=== PATIENT | male | born 1945 | race American Indian/Alaskan Native ===

== ENCOUNTER 2021-04-14 15:03 | Emergency (ER) | payer OTHER ==
[~2021-04-14] VITALS: Ht 193 cm; Wt 113.4 kg
[2021-04-14] MEDS ORDERED: AMLODIPINE BESY10 MG PO (16:23)
[2021-04-14] MEDS ORDERED: IRBESARTAN-HCT1 EAC1 PO (16:23)
[2021-04-14] MEDS ORDERED: JENTADUETO XR1 EAC1 PO (16:24)
[2021-04-14] MEDS ORDERED: JARDIANCE10 MG PO (16:24)
[2021-04-14] MEDS ORDERED: TAMSULOSIN HCL0.4 MG PO (16:24)
[2021-04-14] MEDS ORDERED: ATORVASTATIN CA40 MG PO (16:24)
[2021-04-14] MEDS ORDERED: FINASTERIDE5 MG PO (16:25)
[2021-04-14] MEDS ORDERED: METOPROLOL SUC100 MG PO (16:25)
[2021-04-14] MEDS ORDERED: IBU800 MG PO (20:19)
== END 2021-04-14 20:27 | disposition home or self-care (01) ==
LOC: ER 15:03
DX: M25.551 Pain in right hip (principal); Z96.653 Presence of artificial knee joint, bilateral

== ENCOUNTER 2022-05-01 09:15 | Emergency (ER) | payer OTHER ==
[~2022-05-01] VITALS: Ht 188 cm; Wt 113.4 kg
[~2022-05-01 09:15] MED LIST: AMLODIPINE BESY10 MG PO; ATORVASTATIN CA40 MG PO; FINASTERIDE5 MG PO; IBU800 MG PO; IRBESARTAN-HCT1 EAC1 PO; JARDIANCE10 MG PO; JENTADUETO XR1 EAC1 PO; METOPROLOL SUC100 MG PO; TAMSULOSIN HCL0.4 MG PO
== END 2022-05-01 13:13 | disposition home or self-care (01) ==
LOC: ER 09:15
DX: S39.012A Strain of muscle, fascia and tendon of lower back, initial encounter (principal); S76.911A Strain of unspecified muscles, fascia and tendons at thigh level, right thigh, initial encounter; W19.XXXA Unspecified fall, initial encounter; Y93.9 Activity, unspecified; Y92.9 Unspecified place or not applicable; Y99.9 Unspecified external cause status; E11.9 Type 2 diabetes mellitus without complications; Z79.84 Long term (current) use of oral hypoglycemic drugs; I10 Essential (primary) hypertension

== ENCOUNTER 2024-08-16 08:00 | Inpatient (IN) | payer OTHER ==
[~2024-08-16] VITALS: Ht 175.3 cm; Wt 113.4 kg
[2024-08-16 09:20] LABS: HEMATOCRIT 46.9 % (39.0-48.0); HEMOGLOBIN 16.5 g/dL (13-16.00); MEAN CELL VOLUME 86.9 fL (80.0-100.00); MEAN CORPUSCULAR HEMOGLOBIN 30.6 pg (27.00-32.0); MEAN CORPUSCULAR HGB CONC 35.2 g/dl (32.0-36.0); PLATELET COUNT 272 K/uL (150-450)
[2024-08-16 09:25] LABS: URINE APPEARANCE Clear; URINE BILIRRUBIN Negative (NEGATIVE); URINE BLOOD Negative; URINE COLOR Yellow; URINE KETONE Negative (NEGATIVE); URINE LEUKOCYTE Negative; URINE NITRATE Negative; URINE PROTEIN Negative (NEGATIVE); URINE UROBILINOGEN 0.2 E.U./dl
[2024-08-16 09:26] VITALS: BP 135/87
[2024-08-16 09:29] LABS: URINE BACTERIA 129.7 uL (0.0-1933); URINE EPITHELIAL CELLS 4.2 uL (0.0-38.8); URINE RBC 20.6 uL (0.0-20.8); URINE WBC 4.1 uL (0.0-23.2)
[2024-08-16 09:44] LABS: PARTIAL THROMBOPLASTIN TIME 28.9 SECONDS (22.0-34.0); PROTHROMBIN TIME 10.9 SECONDS (9.0-11.5)
[2024-08-16 09:57] LABS: URINE GLUCOSE >=1000 MG/DL (NEGATIVE)
[2024-08-16 10:01] LABS: ALBUMIN 3.9 gm/dL (3.4-5.0); BILIRUBIN TOTAL 0.78 mg/dL (0.3-1.2); CALCIUM 9.2 mg/dL (8.5-10.1); CREATININE SERUM 1.14 mg/dL (0.70-1.30); GFR 62.12; GLOBULINA 3.2 G/DL (2.4-3.5); POTASSIUM 4.15 mEq/L (3.5-5.1); TOTAL PROTEIN 7.1 gm/dL (6.4-8.2)
[2024-08-16 10:13] LABS: CHOL HDL RATIO 2.8 (0-5.0)
[2024-08-20] MEDS ORDERED: CEFAZOLIN SODIUM 1,000 MG VIAL ONE (12:31)
[2024-08-20] MEDS ORDERED: ENALAPRILAT DIHYDRATE 1.25 MG/ML VIAL IV PRN (15:15)
[2024-08-20] MEDS ORDERED: DEXTROSE 50 % IN WATER 0.5 G/ML DISP.SYRIN IV PRN (15:15)
[2024-08-20] MEDS ORDERED: INSULIN LISPRO 1,000 UNIT/10 ML UNITS SUBCUTANEO PRN (15:15)
[2024-08-20] MEDS ORDERED: TRANEXAMIC ACID 100MG/1ML (1000MG) AMPUL IV ONE (15:25)
[2024-08-20] MEDS ORDERED: VANCOMYCIN HCL 1,000 MG VIAL ONE (15:34)
[2024-08-20] MEDS ORDERED: hydrALAZINE HCL 20 MG VIAL ONE (16:57)
[2024-08-20] MEDS ORDERED: MORPHINE SULFATE 4 MG/ML VIAL IV ONE ×2 (18:20→21:40)
[2024-08-20 19:36] LABS: HEMATOCRIT 49.6 % (39.0-48.0); HEMOGLOBIN 16.9 g/dL (13-16.00); MEAN CELL VOLUME 88.9 fL (80.0-100.00); MEAN CORPUSCULAR HEMOGLOBIN 30.2 pg (27.00-32.0); PLATELET COUNT 269 K/uL (150-450); RED BLOOD COUNT 5.58 M/uL (4.00-6.00)
[2024-08-20 20:10] LABS: CREATININE SERUM 0.9 mg/dL (0.70-1.30); GFR 81.61; POTASSIUM 4.56 mEq/L (3.5-5.1)
[2024-08-20] MEDS ORDERED: TAMSULOSIN HCL 0.4 MG CAP PO SCH (21:00)
[2024-08-20] MEDS ORDERED: hydrALAZINE HCL 50 MG TABLET PO STA (22:43)
[2024-08-21] MEDS ORDERED: TAMSULOSIN HCL 0.4 MG CAP PO ONE (00:07)
[2024-08-21] MEDS ORDERED: hydrALAZINE HCL 50 MG TABLET PO SCH (01:00)
[2024-08-21] MEDS ORDERED: ENALAPRILAT DIHYDRATE 1.25 MG/ML VIAL IV ONE (04:06)
[2024-08-21] MEDS ORDERED: INSULIN LISPRO 1,000 UNIT/10 ML UNITS SUBCUTANEO ONE (04:19)
[2024-08-21] MEDS ORDERED: RINGERS SOLUTION,LACTATED 1,000 ML IV SCH (06:15)
[2024-08-21] MEDS ORDERED: ATORVASTATIN CALCIUM 40 MG TABLET PO SCH (09:00)
[2024-08-21] MEDS ORDERED: FINASTERIDE 5 MG TABLET PO SCH (09:00)
[2024-08-21] MEDS ORDERED: AMLODIPINE BESYLATE 10 MG TABLET PO SCH (09:00)
[2024-08-21] MEDS ORDERED: IRBESARTAN 300 MG TABLET PO SCH (09:00)
[2024-08-21] MEDS ORDERED: METOPROLOL SUCCINATE 100 MG TAB.SR.24H PO SCH (09:00)
[2024-08-21] MEDS ORDERED: HYDROCHLOROTHIAZIDE 12.5 MG CAPSULE PO SCH (09:00)
[2024-08-21] MEDS ORDERED: MORPHINE SULFATE 4 MG/ML VIAL IV STA (12:27)
[2024-08-21] MEDS ORDERED: TRAMADOL HCL 50 MG TABLET PO PRN (12:30)
[2024-08-21] MEDS ORDERED: Cyanocobalamin/Mecobalamin 1 TAB.SL SL SCH (12:50)
[2024-08-21] MEDS ORDERED: APIXABAN 2.5 MG TABLET PO SCH (12:52)
[2024-08-21 13:06] VITALS: BP 167/87; O2SAT 93
[2024-08-21 14:19] VITALS: O2SAT 95
[2024-08-21 14:54] LABS: HEMATOCRIT 47.8 % (39.0-48.0); HEMOGLOBIN 16.5 g/dL (13-16.00); MEAN CELL VOLUME 87.1 fL (80.0-100.00); MEAN CORPUSCULAR HEMOGLOBIN 30.1 pg (27.00-32.0); MEAN CORPUSCULAR HGB CONC 34.5 g/dl (32.0-36.0); PLATELET COUNT 278 K/uL (150-450); RED BLOOD COUNT 5.49 M/uL (4.00-6.00); RED CELL DISTRIBUTION WIDTH 14.1 % (11.5-14.5)
[2024-08-21 16:00] VITALS: BP 140/87; O2SAT 95
[2024-08-21] MEDS ORDERED: VITAMIN B COMPLEX 1 EACH PO SCH (17:00)
[2024-08-21 17:35] VITALS: O2SAT 90
[2024-08-21 21:26] VITALS: O2SAT 88
[2024-08-21 23:55] VITALS: BP 155/89; O2SAT 98
[2024-08-22] VITALS (10 sets, daily range): BP systolic 129–159; BP diastolic 77–96; O2SAT 88–98
[2024-08-22] MEDS ORDERED: hydrALAZINE HCL 50 MG TABLET PO SCH (01:00)
[2024-08-22] MEDS ORDERED: NIFEDIPINE 60 MG TAB.SA.OSM PO SCH (09:00)
[2024-08-22] MEDS ORDERED: hydrALAZINE HCL 50 MG,hydrALAZINE HCL 25 MG PO SCH (09:00)
[2024-08-22] MEDS ORDERED: CEFAZOLIN SODIUM 1,000 MG VIAL ONE (16:15)
[2024-08-22] MEDS ORDERED: TRANEXAMIC ACID 100MG/1ML (1000MG) AMPUL IV ONE (16:16)
[2024-08-22] MEDS ORDERED: ISOPROPYL ALCOHOL 30 ML OUNCE TOP ONE (16:22)
[2024-08-22] MEDS ORDERED: POVIDONE-IODINE 118 ML BOTT TOP ONE (17:06)
[2024-08-22] MEDS ORDERED: VANCOMYCIN HCL 1,000 MG VIAL ONE (17:06)
[2024-08-22] MEDS ORDERED: MORPHINE SULFATE 4 MG/ML CARTRIDGE IV PRN (19:00)
[2024-08-22] MEDS ORDERED: SODIUM CHLORIDE 0.45 % 1,000 ML IV SCH (19:00)
[2024-08-22] MEDS ORDERED: OxyCODONE HCL 5 MG TABLET (ROXICODONE) PO PRN (19:00)
[2024-08-22] MEDS ORDERED: ONDANSETRON HCL 2 MG/ML VIAL IV PRN (19:00)
[2024-08-22] MEDS ORDERED: MORPHINE SULFATE 4 MG/ML VIAL IV ONE ×2 (21:15)
[2024-08-22] MEDS ORDERED: INSULIN LISPRO 1,000 UNIT/10 ML UNITS SUBCUTANEO ONE (21:28)
[2024-08-23] VITALS (8 sets, daily range): BP systolic 91–137; BP diastolic 58–82; O2SAT 90–96
[2024-08-23] MEDS ORDERED: ACETAMINOPHEN 500 MG GEL..CAP PO SCH
[2024-08-23] MEDS ORDERED: CEFAZOLIN SODIUM 1,000 MG VIAL IV SCH (01:00)
[2024-08-23] MEDS ORDERED: GABAPENTIN 300 MG CAPSULE PO SCH (01:00)
[2024-08-23 07:50] LABS: HEMATOCRIT 45.9 % (39.0-48.0); HEMOGLOBIN 15.5 g/dL (13-16.00); MEAN CELL VOLUME 87.3 fL (80.0-100.00); MEAN CORPUSCULAR HEMOGLOBIN 29.6 pg (27.00-32.0); MEAN CORPUSCULAR HGB CONC 33.9 g/dl (32.0-36.0); PLATELET COUNT 253 K/uL (150-450); RED BLOOD COUNT 5.25 M/uL (4.00-6.00); RED CELL DISTRIBUTION WIDTH 13.9 % (11.5-14.5)
[2024-08-23] MEDS ORDERED: APIXABAN 2.5 MG TABLET PO SCH (09:00)
[2024-08-23] MEDS ORDERED: SENNOSIDES 1 TAB TABLET PO SCH (09:00)
[2024-08-23] MEDS ORDERED: hydrALAZINE HCL 50 MG TABLET PO SCH (17:00)
[2024-08-24 00:43] VITALS: BP 104/67; O2SAT 100
[2024-08-24 08:00] VITALS: BP 128/84; O2SAT 91
[2024-08-24] MEDS ORDERED: IRON FUM,PS/FOLIC ACID/VITC/B3 1 CAP CAPSULE PO SCH (09:00)
[2024-08-24 10:40] LABS: HEMOGLOBIN 12.7 g/dL (13-16.00); MEAN CELL VOLUME 87.2 fL (80.0-100.00); MEAN CORPUSCULAR HEMOGLOBIN 29.9 pg (27.00-32.0); MEAN CORPUSCULAR HGB CONC 34.3 g/dl (32.0-36.0); PLATELET COUNT 203 K/uL (150-450); RED BLOOD COUNT 4.24 M/uL (4.00-6.00)
[2024-08-24] MEDS ORDERED: ELIQUIS2.5 MG PO (11:24)
[2024-08-24] MEDS ORDERED: CEFADROXIL500 MG PO (11:24)
[2024-08-24] MEDS ORDERED: PERCOCET 5-3251 EACH PO (11:24)
[2024-08-24 13:53] VITALS: O2SAT 91
[2024-08-24 16:31] VITALS: BP 134/75; O2SAT 95
[2024-08-24 16:54] VITALS: O2SAT 91
[2024-08-24 20:09] VITALS: O2SAT 90
[2024-08-25 00:32] VITALS: BP 128/78; O2SAT 95
[2024-08-25 05:57] VITALS: O2SAT 98
[2024-08-25 09:10] VITALS: BP 156/86; O2SAT 96
[2024-08-25 14:13] VITALS: O2SAT 90
[2024-08-25 16:00] VITALS: BP 152/85; O2SAT 93
[2024-08-25] MEDS ORDERED: MORPHINE SULFATE 4 MG/ML CARTRIDGE IV PRN (21:45)
[2024-08-26 00:50] VITALS: BP 151/91; O2SAT 95
[2024-08-26 08:00] VITALS: BP 131/87; O2SAT 95
[2024-08-26] MEDS ORDERED: LACTULOSE 20 G/30 ML BLIST.PACK PO NR (08:00)
[2024-08-26] MEDS ORDERED: MAGNESIUM HYDROXIDE 30 ML BLIST.PACK PO NR (08:00)
[2024-08-26] MEDS ORDERED: NA PHOS,M-B/NA PHOS,DI-BA 1 BOTTLE ENEMA RECTAL NR (10:11)
[2024-08-26 17:33] VITALS: BP 144/79; O2SAT 96
== END 2024-08-26 18:20 | disposition home or self-care (01) | DRG 470 ==
LOC: SURH 08-20 07:24 → O/R 08-20 07:24 → SURG 08-20 08:00 → MEDJ 08-20 22:56 → O/R 08-21 00:24 → SURH 08-21 10:50
PROVIDERS: Internal Medicine; Internal Medicine Hematology & Oncology; ADMIT Orthopaedic Surgery; ATTEND Orthopaedic Surgery
PROC: 4A12X4Z Monitoring of Cardiac Electrical Activity, External Approach (ICD-10-PCS; 2024-08-21)
PROC: 0MBM0ZZ Excision of Left Hip Bursa and Ligament, Open Approach (ICD-10-PCS; 2024-08-22)
PROC: 0SRB0J9 Replacement of Left Hip Joint with Synthetic Substitute, Cemented, Open Approach (ICD-10-PCS; principal; 2024-08-22 16:00)
DX: M16.12 Unilateral primary osteoarthritis, left hip (principal); D62 Acute posthemorrhagic anemia; I10 Essential (primary) hypertension; I16.0 Hypertensive urgency; M70.62 Trochanteric bursitis, left hip